=== PATIENT | female | born 1950 | race Caucasian/White ===

== ENCOUNTER 2022-01-05 14:50 | Emergency (ER) | payer MEDICARE ==
[2022-01-05 15:55] LABS: HEMOGLOBIN 14.2 gm/dl (12.3-15.3); RED BLOOD COUNT 4.47 M/UL (4.00-5.10); WHITE BLOOD COUNT 15.6 K/UL (4.5-11.0)
[2022-01-05 16:19] LABS: BUN/CREATININE RATIO 23 (0-10)
== END 2022-01-05 20:58 | disposition home or self-care (01) ==
LOC: ER1 14:50
PROVIDERS: Physician Assistant
DX: M54.9 Dorsalgia, unspecified (principal); M79.671 Pain in right foot; M79.674 Pain in right toe(s); I10 Essential (primary) hypertension; E11.9 Type 2 diabetes mellitus without complications; F17.200 Nicotine dependence, unspecified, uncomplicated
CPT/HCPCS: 71045; 80053; 82550; 82553; 83874; 84484; 85025; 85652; 86140; 93005; 93926; 93971; 99283